=== PATIENT | female | born 1945 | race Caucasian/White ===

== ENCOUNTER 2020-09-10 09:22 | Emergency (ER) | payer OTHER, MEDICARE, BC ==
--- NOTE | 2020-09-10 09:53 | EDM.PDOC ---
ED HPI GENERAL MEDICAL PROBLEM - General Chief Complaint: Headache Stated Complaint: FELL ON ICE HIT HEAD Time Seen by Provider: 09/10/20 09:40 Source of Information: Reports: Patient - History of Present Illness INITIAL COMMENTS - FREE TEXT/NARRATIVE: Laura is a 74 y/o female who comes to the ER today because she noticed blood on her Q-tip after cleaning her ears this AM. Yesterday she slipped and fell on the ice. She land on the pavement and hit the back of her head. She thinks that she actually hit her head 2x. She did not have LOC and was able to get up. She did have quite a bump on the back of her head and and then did have a headache. She denied any vision changes or nausea/vomiting. No other injuries. She did not think about the fall much until this AM when she was cleaning her ears and noticed the blood on the Q-tip. Posterior Headache Pain Score (Numeric/FACES): 5 - Related Data Allergies Allergy/AdvReac Type Severity Reaction Status Date / Time codeine Allergy Vomiting Verified 09/10/20 09:38 morphine Allergy Vomiting Verified 09/10/20 09:38 Sulfa (Sulfonamide Allergy Cannot Verified 09/10/20 09:38 Antibiotics) Remember Past Medical History HEENT History: Reports: Cataract Other HEENT History: presbyopia. astigmatism. posterior vitreous detachment. macular drusen. pseudophakia. elevated IOP right. iritis, right Cardiovascular History: Reports: Hypertension Gastrointestinal History: Reports: GERD, Hiatal Hernia Other Gastrointestinal History: esophageal reflux Genitourinary History: Reports: Urinary Incontinence Musculoskeletal History: Reports: Fibromyalgia, Osteoarthritis, RA Endocrine/Metabolic History: Reports: Hypothyroidism, Osteopenia Other Endocrine/Metabolic History: hyperglyceridemia. goiter Social & Family History - Tobacco Use Tobacco Use Status *Q: Never Tobacco User Review of Systems - Review of Systems Review Of Systems: See Below Constitutional: Reports: No Symptoms Eyes: Reports: No Symptoms Ears: Reports: Bloody Discharge (from left ear on Q-tip) Nose: Reports: No Symptoms, Clear Discharge Mouth/Throat: Reports: No Symptoms Respiratory: Reports: No Symptoms GI/Abdominal: Reports: No Symptoms Genitourinary: Reports: No Symptoms Musculoskeletal: Reports: Neck Pain, Back Pain (upper back) Skin: Reports: No Symptoms Neurological: Reports: Headache Psychiatric: Reports: No Symptoms ED EXAM, GENERAL - Physical Exam Exam: See Below Exam Limited By: No Limitations General Appearance: Alert, WD/WN, No Apparent Distress (Adult female) Eye Exam: Bilateral Eye: PERRL Ears: Normal External Exam, Normal Canal, Hearing Grossly Normal, Normal TMs Nose: Normal Inspection, Normal Mucosa, No Blood Throat/Mouth: Normal Inspection, Normal Lips, Normal Teeth, Normal Voice Head: Atraumatic, Normocephalic Neck: Normal Inspection, Supple. No: Tender Midline Respiratory/Chest: No Respiratory Distress, Lungs Clear, Normal Breath Sounds, Chest Non-Tender Cardiovascular: Normal Peripheral Pulses, Regular Rate, Rhythm GI/Abdominal: Normal Bowel Sounds, Soft, Non-Tender (Female) Exam: Deferred Rectal (Female) Exam: Deferred Back Exam: Normal Inspection, Other (mild tenderness in the upper back region with palpation) Extremities: Normal Inspection, Normal Range of Motion, Non-Tender, No Pedal Edema, Normal Capillary Refill Neurological: Alert, Oriented, CN II-XII Intact, Normal Cognition, Normal Gait Psychiatric: Normal Affect, Normal Mood Skin Exam: Warm, Dry, Intact, Normal Color Lymphatic: No Adenopathy Course - Vital Signs Text/Narrative:: 0940 The patient was seen by the JUNIOR ARCHITECT. No injury noted to left ear as cause of the bleeding. No labs or imaging indicated. Patient is not on any blood thinning agents. Questions were answered. Discussed care of mild concussion and warning sx. She was given discharge instructions and left the ER in stable condition. Last Recorded V/S: Last Vital Signs Temp 36.3 C 09/10/20 09:28 Pulse 69 09/10/20 09:28 Resp 14 09/10/20 09:28 BP 138/75 09/10/20 09:28 Pulse Ox 98 09/10/20 09:28 Departure - Departure Time of Disposition: 09:48 Disposition: Home, Self-Care 01 Condition: Good Clinical Impression: Concussion Qualifiers: Encounter type: initial encounter Loss of consciousness presence/duration: without LOC Qualified Code(s): S06.0X0A - Concussion without loss of consciousness, initial encounter - Discharge Information *PRESCRIPTION DRUG MONITORING PROGRAM REVIEWED*: Not Applicable *COPY OF PRESCRIPTION DRUG MONITORING REPORT IN PATIENT DEANN: Not Applicable Instructions: Concussion, Adult, Concussion, Adult, [id number] Sepsis Event Note (ED) - Evaluation Sepsis Screening Result: No Definite Risk - Focused Exam Vital Signs: Vital Signs Temp Pulse Resp BP Pulse Ox 09/10/20 09:28 36.3 C 69 14 138/75 98 - Assessment/Plan Assessment:: 1)Concussion, Mild Plan: -Use ibuprofen or acetaminophen as needed for headache -Rest as needed -Review concussion education sheet that is attached -Return to the clinic or ER if you have any further concerns or your symptoms are not resolving
== END 2020-09-10 09:54 | disposition home or self-care (01) ==
LOC: VM.ED 09:22
DX: S06.0X0A Concussion without loss of consciousness, initial encounter (principal); I10 Essential (primary) hypertension; Z88.5 Allergy status to narcotic agent; Z88.2 Allergy status to sulfonamides; W00.0XXA Fall on same level due to ice and snow, initial encounter
CPT/HCPCS: 99283; 99284